=== PATIENT | male | born 1965 | race Hispanic/Latino ===

== ENCOUNTER → 2018-01-04 | Outpatient (CLI) | payer BC ==
--- NOTE | 2018-01-04 17:58 | Diagnostic Imaging Report ---
EXAM: Renal Ultrasound INDICATION: \S\MICROSCOPIC HEMATURIA COMPARISON: Abdominal ultrasound dated 06/13/2014 TECHNIQUE: Transverse and longitudinal images of the kidneys and bladder were obtained. FINDINGS: Right Kidney: Size: 10.6 cm Echogenicity: Normal Parenchymal thickness: Normal Collecting system: No hydronephrosis Stones: None Cyst/Mass: None Left Kidney: Size: 10.6 cm Echogenicity: Normal Parenchymal thickness: Normal Collecting system: No hydronephrosis Stones: None Cyst/Mass: None Bladder: Unremarkable. Prostate measures 3.1 x 2.1 x 3.8 cm, containing coarse calcifications. IMPRESSION: Unremarkable renal ultrasound exam. Signed by: Dr. To Jauregui MD on 01/04/2018 5:54 PM
== END ==
LOC: US 16:27
PROVIDERS: ATTEND Family Medicine
DX: R31.29 Other microscopic hematuria (principal)
CPT/HCPCS: 76770

== ENCOUNTER 2024-11-20 20:22 | Emergency (ER) | payer SELFPAY ==
[2024-11-20 20:22] VITALS: TEMP 98.1
[~2024-11-20 20:22] MED LIST: ATROPINE SULFATE 0.1 MG/ML 10ML SYR ONE
[2024-11-20] MEDS ORDERED: ASPIRIN 81 MG CHEW TAB ONE (20:25)
[2024-11-20] MEDS ORDERED: SODIUM CHLORIDE 0.9% 1000ML 2,000 ML ONE (20:33)
[2024-11-20 20:45] VITALS: PULSE 54; RESP 18
[2024-11-20] MEDS: ASPIRIN 81 MG CHEW TAB PO ONE (20:45)
[2024-11-20 20:57] VITALS: BP 99/74; PULSE 50; RESP 16; O2SAT 100
[2024-11-20 20:57] LABS: BASOPHILS # (AUTO) 0.1 (0.0-0.1); BASOPHILS % 0.5 % (0.0-1.0); EOSINOPHILS # (AUTO) 0.5 (0.0-0.4); EOSINOPHILS % 3.6 % (0.0-6.0); HEMATOCRIT 43.3 % (38.2-49.6); HEMOGLOBIN 14.5 g/dL (14.0-18.0); LYMPHOCYTES # (AUTO) 3.7 (1.0-3.2); MEAN CORPUSCULAR HEMOGLOBIN 31.3 pg (28-32); MEAN CORPUSCULAR HGB CONC 33.5 g/dL (31-35); MEAN CORPUSCULAR VOLUME 93.3 fL (81-99); MONOCYTES # (AUTO) 0.9 (0.2-0.8); MONOCYTES % 6.8 % (4.4-11.3); NEUTROPHILS # (AUTO) 7.6 (2.1-6.9); NEUTROPHILS % 59.4 % (38.7-80.0); PLATELET COUNT 312 x10e3/uL (140-360); RED BLOOD COUNT 4.64 x10e6/uL (4.3-5.7); RED CELL DISTRIBUTION WIDTH 13.5 % (11.7-14.4)
[2024-11-20 21:04] LABS: INR 0.93; PARTIAL THROMBOPLASTIN TIME 19.5 seconds (23.8-35.5)
[2024-11-20 21:13] LABS: ALBUMIN 3.5 g/dL (3.5-5.0); ALBUMIN/GLOBULIN RATIO 1.3 (0.8-2.0); ANION GAP 15.4 mmol/L (8-16); BILIRUBIN,TOTAL 0.3 mg/dL (0.2-1.2); CALCIUM 8.6 mg/dL (8.4-10.2); CREATININE, SERUM 1.22 mg/dL (0.72-1.25); TOTAL PROTEIN 6.1 g/dL (6.5-8.1)
[2024-11-20 21:19] LABS: POTASSIUM 3.4 mmol/L (3.5-5.1)
== END 2024-11-20 21:00 | disposition other institution (70) ==
LOC: ER 20:28
DX: R06.02 Shortness of breath (principal); I21.19 ST elevation (STEMI) myocardial infarction involving other coronary artery of inferior wall; I10 Essential (primary) hypertension; E78.00 Pure hypercholesterolemia, unspecified; R94.31 Abnormal electrocardiogram [ECG] [EKG]; Z86.79 Personal history of other diseases of the circulatory system; F17.210 Nicotine dependence, cigarettes, uncomplicated
CPT/HCPCS: 36415; 71045; 80053; 82948; 84484; 85025; 85610; 85730; 93005; 99284; J7030